=== PATIENT | male | born 1970 | race African-American/Black ===

== ENCOUNTER 2024-09-09 16:18 | Emergency (ER) | payer MEDICAID ==
[~2024-09-09] VITALS: Ht 177.8 cm; Wt 91.0 kg
[2024-09-09 16:25] VITALS: BP 138/91; PULSE 98; RESP 18; TEMP 37.3; O2SAT 100
== END 2024-09-09 17:56 | disposition left against medical advice (07) ==
LOC: ER 16:18
DX: R10.9 Unspecified abdominal pain (principal); I10 Essential (primary) hypertension; Z98.890 Other specified postprocedural states; Z53.21 Procedure and treatment not carried out due to patient leaving prior to being seen by health care provider

== ENCOUNTER 2024-12-02 12:30 | Emergency (ER) | payer MEDICAID ==
[~2024-12-02] VITALS: Ht 182.9 cm; Wt 108.0 kg
[2024-12-02 12:44] VITALS: O2SAT 100
[2024-12-02] MEDS ORDERED: KETOROLAC 15MG/ML VIAL IM ONE (13:45)
[2024-12-02] MEDS: KETOROLAC 15MG/ML VIAL IM SCH (16:03)
[2024-12-02 16:20] VITALS: BP 149/95; PULSE 88; RESP 14; TEMP 36.8; O2SAT 100
[2024-12-02] MEDS ORDERED: CYCL10TA21 MT (16:20)
== END 2024-12-02 16:25 | disposition home or self-care (01) ==
LOC: ER 12:30
DX: M54.2 Cervicalgia (principal); I10 Essential (primary) hypertension; Z88.6 Allergy status to analgesic agent
CPT/HCPCS: 99285; 70450; 72125; 96372; J1885

== ENCOUNTER 2024-12-14 18:14 | Emergency (ER) | payer MEDICAID ==
[~2024-12-14] VITALS: Ht 182.9 cm; Wt 110.0 kg
[~2024-12-14 18:14] MED LIST: CYCL10TA21 MT
[2024-12-14 18:19] VITALS: O2SAT 99
[2024-12-14] MEDS ORDERED: OXYC-100 MT (19:14)
[2024-12-14 22:38] VITALS: TEMP 36.7; O2SAT 99
[2024-12-14 22:49] VITALS: BP 154/101; PULSE 100; RESP 12
[2024-12-14] MEDS: OXYCODONE HCL/ACETAMINOPHEN 5/325MG TABLET PO ONE (22:49)
== END 2024-12-14 22:50 | disposition home or self-care (01) ==
LOC: ER 18:14
DX: M10.00 Idiopathic gout, unspecified site (principal); Z79.899 Other long term (current) drug therapy; Z88.6 Allergy status to analgesic agent
CPT/HCPCS: 99283